=== PATIENT | male | born 1985 | race Caucasian/White ===

== ENCOUNTER 2018-01-22 21:04 | Emergency (ER) | payer OTHER ==
[~2018-01-22] VITALS: Ht 182.9 cm; Wt 100.0 kg
[2018-01-22 21:46] VITALS: BP 148/58; PULSE 73; RESP 18; TEMP 98; O2SAT 97
[2018-01-22] MEDS ORDERED: ZITHTAB PO (22:32)
--- NOTE | 2018-01-22 22:36 | PD ---
HPI Chief Complaint: Cold / Flu Symptoms Time Seen by Provider: 22:26 Travel History International Travel<30 days: No Contact w/Intl Traveler<30days: No Traveled to known affect area: No History of Present Illness HPI 32-year-old white male presents emergency department with a 5 day history of headache, runny nose, cough, congestion, sore throat, green sputum, and general malaise. Patient denies any fever or chills. No nausea vomiting. No abdominal pain or urinary symptoms. Symptoms are moderate. No alleviating factors. Just moved to the area 2 weeks ago. [facility] Past Medical History Medical History: Denies Significant Hx Tetanus Vaccination: Unknown Influenza Vaccination: Yes Past Surgical History Surgical History: No Previous Surgery Social History Alcohol Use: Yes (rarely) Tobacco Use: No Substance Use: No Allergies-Medications (Allergen,Severity, Reaction): Coded Allergies: No Known Drug Allergies (Verified Allergy, Unknown, 01/22/18) Reported Meds & Prescriptions Reported Meds & Active Scripts Active No Active Prescriptions or Reported Medications Review of Systems Except as stated in HPI: all other systems reviewed are Neg Physical Exam Narrative GENERAL: Well-developed, well-nourished in no acute distress. Nontoxic appearing. HEAD: Normocephalic, atraumatic. EYES: Pupils equal round and reactive. Extraocular motions intact. No scleral icterus. No injection or drainage. ENT: TMs clear without erythema. The external auditory canals clear. Nose: clear . Posterior pharynx is pink and moist. No tonsillar edema or exudate. Uvula midline. Airway patent. NECK: Trachea midline.Supple, nontender, moves head freely. No central bony tenderness or spasm. CARDIOVASCULAR: Regular rate and rhythm without murmurs, gallops, or rubs. RESPIRATORY: Clear to auscultation. Breath sounds equal bilaterally. No wheezes , rales, or rhonchi. GASTROINTESTINAL: Abdomen soft, non-tender, nondistended. No hepato-splenomegaly , or palpable masses. No guarding. EXTREMITIES: No clubbing, cyanosis, or edema. No joint tenderness, effusion, or edema noted. BACK: Nontender without deformity or crepitance. No flank tenderness. Data Data Last Documented VS Vital Signs Date Time Temp Pulse Resp B/P (MAP) Pulse Ox O2 Delivery O2 Flow Rate FiO2 01/22/18 21:46 98.0 73 18 148/58 (88) 97 Orders Orders Influenzae A/B Antigen (01/22/18 21:56) MDM Medical Decision Making Medical Screen Exam Complete: Yes Emergency Medical Condition: Yes Medical Record Reviewed: Yes Differential Diagnosis MDM: High Differential diagnoses: Pneumonia, bronchitis, URI, asthma, RAD, legionnaire's disease, SARS, ARDS, influenza, bronchiolitis, RSV,PE,CHF Narrative Course This is bronchitis Diagnosis Primary Impression: Bronchitis Patient Instructions: General Instructions Additional Instructions: Rest. Increase fluids. Tylenol and Advil. Robitussin-DM. Zithromax Followup with your Dr. in one week. Return to the ER for any problems. Med/Other Pt SpecificInfo: Prescription(s) given Scripts Azithromycin (Zithromax Z-Robert) 250 Mg Dspk 250 MG PO DIRECTED for Infection, #1 DSPK 0 Refills 500 MG (2 tabs) day 1, then 1 tab days 2-5. Prov: Boo Agrawal MD 01/22/18 Disposition: 01 DISCHARGE HOME Condition: Stable Javed Joseph Jan 22, 2018 22:36
[2018-01-22] MEDS ORDERED: AMOXICILLIN (TRIHYDRATE) 500 MG CAP PO ONE (22:45)
== END 2018-01-22 22:49 | disposition home or self-care (01) ==
LOC: NEPD 21:04
DX: J40 Bronchitis, not specified as acute or chronic (principal)
CPT/HCPCS: 87804; 99283